=== PATIENT | male | born 1960 | race Caucasian/White ===

== ENCOUNTER 2023-05-08 15:09 | Outpatient (AMB) | payer OTHER, SELFPAY ==
--- NOTE | 2023-05-08 16:07 | A.SPINEOV_ITS ---
Intake Intake Visit Reasons: Follow up from second opinion Intake Note: Mr. Xie is here to f/u from second opinion. 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 Juan Xie to discuss surgical options for his ongoing debilitating predominantly right leg symptoms. I refer to my previous note of 10/16/[address] [facility] for detailed description of his symptomatology. I obtained flexion-extension x-rays which showed instability of L4-5 with a grade 2 spondylolisthesis and a mild spondylo listhesis at L5-S1. At that time we decided 1st to do injections before a lumbar fusion surgery. He underwent 2 injections without significant results. He also went for 2nd opinion, where he was advised to undergo an L4-S1 lumbar fusion. I initially offered him only a fusion of the L4-5 segment. Today we went over the MRI scan at [facility] and his previous standing flexion-extension x-rays in detail again. I told the patient that if he wants to remove all the out that the L5-S1 segment is also involved in his symptomatology to choose the option L4-S1 fusion. There is already a lysis of the L5 lamina and previous surgery and therefore I have to agree with the other surgeon that there is a significant risk for adjacent degenerative disease at L5-S1 with additional surgery. It is also known that the success rate of surgery go down with every spinal procedure performed. We in the end decided that an L4-S1 fusion would be more beneficial to the patient as it takes away any doubt that the L5-S1 segment might be involved as well in his symptomatology. We briefly also discussed the risk of adjacent degenerative disc disease at L3-4. The patient is only 63 years old and therefore there is a future risk for development of adjacent L3-4 degenerative disc disease. The patient finds his symptoms 2 debilitating to just continue the way he is now. I offered him a oblique lumbar interbody fusion L4-S1 which would destabilize the L4-5 and L5-S1 segments and indirectly decompress his nerve roots. We discussed the procedure, complications and expected postoperative course. He will visit the approach surgeon, Dr. Mcallister, which is needed for the L5-S1 segment. We will plan the surgery for the end of June or beginning of July. I spent over 50 minutes in this consult for preparation, discussing plan of care and answering questions. Pal Harvey MD, PhD Spine Fellowship Trained Neurosurgeon Director, [facility] Coding Level of Care Code Est Pt Level 5 (28736) Diagnoses Spondylolisthesis of lumbosacral region M43.17 Bilateral lumbar radiculopathy M54.16
== END 2023-05-08 16:39 | disposition home or self-care (01) ==
PROVIDERS: Visit Provider Neurological Surgery
DX: M43.17 Spondylolisthesis, lumbosacral region (principal); M54.16 Radiculopathy, lumbar region
CPT/HCPCS: 99215

== ENCOUNTER → 2023-05-08 15:09 | Outpatient (BNVA) | payer OTHER, SELFPAY | PROVIDERS: Visit Provider Neurological Surgery ==

== ENCOUNTER → 2023-08-19 08:55 | Outpatient (BNV) | payer OTHER, SELFPAY | PROVIDERS: Visit Provider Surgery | DX: Z48.89 Encounter for other specified surgical aftercare (principal) | CPT/HCPCS: 20930; 22558; 22585; 22612; 22614; 22840; 22853; 99024; 99499 ==

== ENCOUNTER 2023-08-19 16:27 | Inpatient (IN) | payer OTHER, SELFPAY ==
[2023-08-08 12:32] VITALS: BP 135/98; PULSE 85; RESP 18; O2SAT 94; BMI 25.5
--- NOTE | 2023-08-08 12:49 | HO.ANESPROP2 ---
Documented by User: Shivani Peguero NP 08/16/23 08:09 HPI - Anesthesia Eval Consult details Narrative: 63yo M for L4-S1 Oblique Lumbar Interbody Fusion, 08/19/23 No recent illness No CP/SOB with walking multiple miles daily. CAD s/p CABG 2016. No angina/symptoms. Follows [email or web address] cardiology. Stable at last visit 02/2023 s/p [facility] Active Problems Active Problems: All Active Problems (Updated 08/08/23 @ 12:21 by Brittany Borrego RN) Bilateral lumbar radiculopathy (Acute) Spondylolisthesis of lumbosacral region (Acute) Past Medical History Medical History Numbness JOHNSON positive [place] disease Basal cell carcinoma Actinic keratoses Tinea pedis Spondylolisthesis Hyperlipidemia Coronary artery insufficiency CAD (coronary artery disease) HTN (hypertension) Family History Family history of problems with anesthesia: No Surgical History Surgical History Hx of spinal surgery Hx of spinal surgery Hx of spinal surgery S/P CABG (coronary artery bypass graft) History of Problems with Anesthesia: No Social History Social History Are you a primary child care provider to a significant other at home: No Do you presently have visiting nurse or other home services: No Patient Tobacco Use Status: Never used Tobacco Use of substances other than those prescribed or required for medical reasons: No Have you been hit, kicked, punched, or otherwise hurt by someone within the past year? If so, by whom?: No Are you DNR?: No Advance Directives: No Advance Directives Information Provided: Yes Advance Directives on File: No Recently lost weight without trying: No Eating poorly because of decreased appetite: No Nutrition Risks: No Nutritional Risk Poor oral hygiene: No Meds Allergies Allergy/AdvReac Type Severity Reaction Status Date / Time amlodipine Allergy Unknown Verified 08/19/23 09:13 lisinopril Allergy Unknown Verified 08/19/23 09:13 Home Medications Medication Instructions Recorded Confirmed Last Taken Type aspirin 81 mg tablet,delayed 81 mg PO DAILY 08/08/23 08/08/23 08/08/23 History release atorvastatin 40 mg tablet 40 mg PO BEDTIME 08/08/23 08/08/23 Unknown History metoprolol succinate 50 mg 50 mg PO DAILY 08/08/23 08/08/23 08/19/23 History tablet,extended release 24 hr nitroglycerin 0.4 mg sublingual 0.4 mg sublingual DIRECTED PRN 08/08/23 08/08/23 Unknown History tablet Chest Pain Exam Exam Date and Time: August 08, 2023 1249 Height,Weight and Vital Signs: Height 5 ft 11 in Weight 83.007 kg Last Vital Signs Pulse 85 08/08/23 12:32 Resp 18 08/08/23 12:32 BP 135/98 H 08/08/23 12:32 Pulse Ox 94 08/08/23 12:32 O2 Del Method Room Air 08/08/23 12:32 Pertinent Lab Results Pertinent Lab Results: Lab Results 08/08/23 08/08/23 Range/Units 13:25 13:32 WBC 6.1 (4.8-10.8) X10*3/uL RBC 5.93 H (4.60-5.80) X10*6/uL Hgb 16.7 (14.0-18.0) g/dl Hct 50.9 (42.0-52.0) % MCV 85.8 (80.0-98.0) fL MCH 28.2 (27.0-33.0) pg MCHC 32.8 (31.0-36.0) g/dl RDW 13.2 (11.0-16.0) % Plt Count 198 (160-400) X10*3/uL MPV 10.6 (9.4-12.4) fL Absolute Nucleated RBC 0.000 (0.0-0.012) X10*3/uL Nucleated RBC % (auto) 0.0 (0.0-0.2) /100WBC Sodium 140 (135-145) mmol/L Potassium 3.8 (3.3-5.1) mmol/L Chloride 109 H (96-108) mmol/L Carbon Dioxide 23 (22-29) mmol/L Anion Gap 12 (12-20) BUN 12 (9-16) mg/dL Creatinine 0.74 (0.5-1.4) mg/dL Estim Creat Clear Calc 110.2 Estimated GFR > 60 Random Glucose 83 (60-115) mg/dL Calcium 9.6 (8.4-10.2) mg/dL Blood Type AB Positive Antibody Screen NEGATIVE Narrative Narrative: EKG 02/2023 NSR @ 61 Incomp RBBB Stress ECHO 2018 Negative for ischemia Airway Mallampati Class: III TM Dist: >3cm Neck ROM: Full Loose/Missing/Broken Teeth: No Heart: RRR Lungs: CTAB Assessment and Plan Assessment Anesthesia Assessment: Anesthesia Plan Discussed and PAT Visit Final Anesthetic Review Family History of Problems with Anesthesia: No History of Problems with Anesthesia: No Documented by User: Benson Claros MD 08/20/23 17:34 PMFSH Past Medical History Medical History Numbness JOHNSON positive [place] disease Basal cell carcinoma Actinic keratoses Tinea pedis Spondylolisthesis Hyperlipidemia Coronary artery insufficiency CAD (coronary artery disease) HTN (hypertension) Surgical History Surgical History Hx of spinal surgery Hx of spinal surgery Hx of spinal surgery S/P CABG (coronary artery bypass graft) Social History Social History Are you a primary child care provider to a significant other at home: No Do you presently have visiting nurse or other home services: No Patient Tobacco Use Status: Never used Tobacco Use of substances other than those prescribed or required for medical reasons: No Have you been hit, kicked, punched, or otherwise hurt by someone within the past year? If so, by whom?: No Are you DNR?: No Advance Directives: No Advance Directives Information Provided: Yes Advance Directives on File: No Recently lost weight without trying: No Eating poorly because of decreased appetite: No Nutrition Risks: No Nutritional Risk Poor oral hygiene: No Meds Allergies Allergy/AdvReac Type Severity Reaction Status Date / Time amlodipine Allergy Unknown Verified 08/19/23 09:13 lisinopril Allergy Unknown Verified 08/19/23 09:13 Home Medications Medication Instructions Recorded Confirmed Last Taken Type aspirin 81 mg tablet,delayed 81 mg PO DAILY 08/08/23 08/08/23 08/08/23 History release atorvastatin 40 mg tablet 40 mg PO BEDTIME 08/08/23 08/08/23 Unknown History metoprolol succinate 50 mg 50 mg PO DAILY 08/08/23 08/08/23 08/19/23 History tablet,extended release 24 hr nitroglycerin 0.4 mg sublingual 0.4 mg sublingual DIRECTED PRN 08/08/23 08/08/23 Unknown History tablet Chest Pain Exam Airway Loose/Missing/Broken Teeth: Yes Assessment and Plan Assessment Anesthesia Assessment: Chart Reviewed Final Anesthetic Review NPO: Yes ASA Class: III Final Preanesthetic Review: Meds/Allgs Chart Reviewed, Consent Obtained/Reviewed and Anes Risks/Benef Reviewed Patient Risk: Intermediate Procedure Risk: Intermediate Anesthetic Plan Anesthetic Plan: GA and Agree w/ Assess. and Plan Disposition: Standard PACU
[2023-08-08 13:54] LABS: Hematocrit 50.9 % (42.0-52.0); Hemoglobin 16.7 g/dl (14.0-18.0); Mean Corpuscular HGB Conc 32.8 g/dl (31.0-36.0); Mean Corpuscular Hemoglobin 28.2 pg (27.0-33.0); Mean Corpuscular Volume 85.8 fL (80.0-98.0); Mean Platelet Volume 10.6 fL (9.4-12.4); Platelet Count 198 X10*3/uL (160-400); Red Blood Count 5.93 X10*6/uL (4.60-5.80); Red Cell Distribution Width 13.2 % (11.0-16.0); White Blood Count 6.1 X10*3/uL (4.8-10.8)
[2023-08-08 14:27] LABS: Anion Gap 12 (12-20); Blood Urea Nitrogen 12 mg/dL (9-16); Calcium 9.6 mg/dL (8.4-10.2); Carbon Dioxide 23 mmol/L (22-29); Chloride 109 mmol/L (96-108); Creatinine Clr Calc Pharmacy 110.2; Estimated Glomerular Filt Rate > 60; Glucose Random 83 mg/dL (60-115); Potassium 3.8 mmol/L (3.3-5.1); Sodium 140 mmol/L (135-145)
[2023-08-19] VITALS (9 sets, daily range): BP systolic 107–144; BP diastolic 65–95; PULSE 79–86; RESP 13–20; TEMP 36–36.6; O2SAT 95–98
--- NOTE | ~2023-08-19 | XR_ITS ---
EXAMINATION: XR LUMBOSACRAL SPINE CLINICAL INFORMATION: History of L4-S1 ALIF. COMPARISON: Fluoroscopy of the same date. TECHNIQUE: An AP view of the lumbosacral spine are submitted. FINDINGS: Vertebral body heights are normal. There is a slight thoracolumbar dextroscoliosis. Orthopedic hardware is redemonstrated status-post L5-S1 fusions and discectomies, with intact posterior fixator rods, pedicular screws and disc spacers. No hardware failure or loosening is seen. XR/XR lumbar spine 1V IMPRESSION: Intact orthopedic hardware is noted status-post L5-S1 lumbar fusions.
--- NOTE | ~2023-08-19 | FL_ITS ---
EXAMINATION: XR FLUOROSCOPY WITH IMAGES CLINICAL INFORMATION: L4-S oblique lumbar interbody fusion. COMPARISON: None available. TECHNIQUE: Fluoroscopy Supervised By: Dr. Pal Harvey. Fluoroscopy Time: 1 minute 30 seconds. Cumulative Dose: 87.393 mGy. DAP: 26.121 Gycm2. Images: 2. FINDINGS: Images demonstrate posterior rods and bilateral transpedicular screws at L4 L5 and S1 and interbody fusion hardware at the L4-L5 and L5-S1 disc spaces. Surgical clips are seen anterior to the L5 vertebral body. FL/FL guidance in OR IMPRESSION: Fluoroscopy guidance for lumbar spine surgery
--- NOTE | 2023-08-19 07:12 | MHC.SHP ---
Pre-Procedural Eval Section A Date of Service: 08/19/23 The patient is an INPATIENT: No Changes since office visit: No Cold of Flu in the past 2 weeks, No New Medical Problems, No Changes in Medication and No Patient answered all questions The History & Physical has been completed within 30 days and I have reviewed it.: No Section B Chief Complaint: Spondylolisthesis, lumbosacral region Allergies: Allergies Allergy/AdvReac Type Severity Reaction Status Date / Time amlodipine Allergy Unknown Verified 08/08/23 12:05 lisinopril Allergy Unknown Verified 08/07/23 10:31 Review of Systems Sugical H&P ROS: Negative: Constitution, Cardiovascular, Respiratory, Neurological, Psychiatric, Hem-Onc, Allergic/Immunologic, Gastrointestinal, Genitourinary, Musculoskeletal, Integumentary, Endocrine and Eyes/Ears/Nose/Throat Exam Surgical H&P Exam: Not Evaluated: HEENT, Not Evaluated: Heart, Not Evaluated: Lungs, Not Evaluated: Extremities, Not Evaluated: Abdomen, Not Evaluated: Skin and Not Evaluated: Neurological Plan Diagnosis/Plan: Unchanged I have reviewed the history and physical and performed a pertinent physical examination on my patient. No changes have occurred unless specified. L4-S1 OLIF Time Spent With Patient Time: Total time managing care of this patient today __10__ minutes.
[2023-08-19] MEDS: Lactated Ringers 1,000 ML 100 ML IVCONT (09:21)
[2023-08-19] MEDS: methocarbamoL 750 MG TABLET PO (10:57)
[2023-08-19] MEDS: Gabapentin 300 MG CAPSULE PO (10:57)
--- NOTE | 2023-08-19 11:41 | PC.NURSE ---
Dr. Claros aware that patient stated that he started with a clear runny nose, minor sore throat on this past Saturday. Very occasional cough. Patient denies ever having fever, n/v, chills, diarrhea and stated that symptoms have improved over the weekend and today. Okay to proceed.
--- NOTE | 2023-08-19 14:33 | P.OP_ITS ---
Operative Note Operative Note Date of Service: 08/19/23 Narrative: Patient was evaluated by Dr. Harvey for chronic lower back pain and radiculopathy and scheduled for ALIF L4-S1. I met with the patient pre- operatively and discussed the access part of the procedure and risks an the patient agreed to proceed. He was brought to the operating room and general anaesthesia was administered without incident. Abdomen was prepped sterily and draped.Hughes was inserted. Timeout was done. 6 cm infra-umbilical incision was done and it was brought down to the anterior rectus sheath. Rectus sheath was opened vertically and left rectus muscle was mobilized. Left inferior epigastric vessels were protected. Spermatic cord was dissected and protected ant retro-peritoneal plane was developed. Left ureter was visualized and protected. Bookwalter retractor was placed with narrow blades. Dissection was carried at the medial aspect of the the left common iliac vein which was mobilized from the spine and middle sacral vessels were divided, Bipolar electrocautery was used to completely free L5-S1 disc anteriorly. Midline was marked with X-ray imaging. Iliac veins confluence to vena cave was at L3 level. Dissection continued up to L4-L5 level medial and behind left iliac vein which was retracted. There was a nerve structure, probably sympathetic plexus which was dissected and protected. Midline was marked at both levels and levels were confirmed with X-ray. Doctor Harvey then proceeded with diskectomy and cage fusion at L5-S1 and the L4-L5 lvels. Hemostasis was checked and was excellent. Gelfoam sponge was placed over the disc space with thrombin. Ureter was intact and there was a good iliac pulse. Incision was injected with diluted Lidocaine/Marcaine mixture and closed by layers using O-Maxone on the fascia and absorbable subcutaneous and subcuticular closure. Exofin glue and steri-strip were applied. EBL: less then 75ml Complication:none
--- NOTE | 2023-08-19 16:03 | P.OP_ITS ---
Operative Note Operative Note Date of Service: 08/19/23 Narrative: Preoperative Diagnosis: Lumbar degenerative disc disease L4-5 and L5-S1 with radiculopathy Procedure: L4-5 and L5-S1 discectomy, arthrodesis and implantation cage through an anterior lumbar approach (ALIF) ; posterior instrumented fusion L4-S1; allograft Indication for Surgery Lumbar degenerative disc disease Consent Informed Consent was obtained for this operation. I have explained the nature, purpose and benefits of the operation. I have discussed the risks and benefit of the operation including possible complications or adverse events with patient/family. Alternative(s) were discussed with the patient with their relative benefits and risks as well as the consequences of not accepting the operation were included in obtaining consent. Surgeon: SNEHA ORTEGA MD, PHD Procedure Assisted By: MARILYN MCALLISTER MD and millie Cooper Description of Procedure This 63-year-old male is suffering from back pain and right lumbar radiculopathy. Repeat imaging shows an L5-S1 spondylolisthesis and degenerative disc disease L4-5. The patient was offered an anterior lumbar interbody fusion L4-5 and L5-S1 followed by an L4-S1 posterior instrumented fusion. The procedure complications were explained. The patient was consented. The patient was brought to the operating room and endotracheally intubated. The patient was put in a supine position. Prep and drape was done followed by timeout. Dr. Mcallister, co- surgeon, provided the access to the L4-5 and L5-S1 disc spaces through an anterior approach. He was assisted by physician emergency veterinary assistant who performed manual retraction. He will dictate the approach in a separate operative note. When the L4-5 and L5-S1 disc spaces were exposed I took over the procedure. I started with a L5-S1 annulotomy that was followed by a partial discectomy. Sequential t rial implants were inserted and advanced towards the posterior wall of the disc space. I completed the discectomy and prepared the endplates. Then a 24 x 36 x 14 and 12 degree lordosis 4 web cage filled with allograft was inserted into the disc space. That attention was turned to the L4-5 disc space where similar steps were taken to complete the diskectomy and endplate preparation. A 24 x 36 x 14 and 12 degree lordosis 4 web cage filled with allograft was inserted into the L4-5 disc space under fluoroscopic guidance. The retractor was removed and hemostasis was done by Dr. Angelo who closed the incision. This marked first part of the procedure. Accordingly the patient was turned prone on the Raymundo spine table and 2 C arms were installed for fluoroscopy. Prep and drape was done followed by a second timeout. 2 paramedian incisions were made lateral from the L4-S1 pedicles. The muscle fascia was opened and the musculature was split bluntly to expose the posterolateral gutter. The following steps were taken for pedicle screw placement: The pediguard tap was used to create a transpedicular trajectory into the vertebral body. A K wire was advanced. A specially designed instrument was advanced over the K wire to decorticate the posterolateral gutter. Pedicle screw was advanced after which the K wire was removed. Subsequently, pedicle screws were placed in the bilateral L4, L5 and S1 pedicles. Total of 6 screws were placed with the following measurements: 6.5 x 45 mm in the bilateral L4 and L5 pedicles and 6.5 x 40 mm in the bilateral S1 pedicles. A 75 mm castillo was tunneled bilaterally and locked down with locking caps. The extension towers were removed. The posterolateral fusion was completed by laying down allograft in the posterolateral gutter. Hemostasis was done. The paramedian incisions were closed with an 0 Vicryl to fascia and 3-0 Vicryl to subdermal layer. Steri-Strips were used to approximate the incision. An OpSite with Tegaderm was used to cover the incisions. All sponge and needle counts were correct. The patient was extubated and transported in stable condition to recovery room. The physician emergency veterinary assistant was critical for the following aspects of surgery: Initial exposure, pedicle screw insertion and closure of the incisions. Anesthesia: General Estimated Blood Loss (ml): 55 mL Duration of Surgery: 3.5 hours Complications: None Postoperative Plan: Admit to inpatient for obsrevation
--- NOTE | 2023-08-19 16:51 | PHA.MEDREC ---
Pharmacy Consult ? Medication Reconciliation Pharmacy has reviewed the medication reconciliation. [email or web address]
--- OUTSIDE RECORDS SUMMARY | 2023-08-19 16:51 | XMS_ITS | Patient Health Record ---
Author Name Unknown Organization [facility], [facility] Address [address] [address] Care Team Providers Care [employer] Name Role Phone Aki You Primary Care Provider PAMELA Hooper Unavailable [phone] Flako Sheth Unavailable Unavailable REASON FOR REFERRAL No Information SOCIAL HISTORY Sex Assigned At : Social History Observation Description Sex Assigned At Unknown Encounters Encounter Location Date Provider Diagnosis [facility] [address] [address] 03/22/2023 BRETA BOOTS Lumbosacral radiculopathy M54.17 and Numbness R20.0 [facility] [address] [address] 03/29/2023 BRETA BOOTS ASSESSMENTS Encounter Date Diagnosis Assessment Notes Treatment Notes Treatment Clinical Notes 03/22/2023 Numbness (ICD-10 - R20.0) 03/22/2023 Lumbosacral radiculopathy (ICD-10 - M54.17) Please see scanned EMG note. PLAN OF TREATMENT No Information Insurance Providers Payer Name Payer Address Payer Phone Subscriber Number Group Number Insured Name Patient Relationship to Insured Coverage Start Date Coverage End Date [facility] [address] [place] [phone] [id number] Juan Gutierrez Self - patient is the insured
[2023-08-19] MEDS: HYDROmorphone HCl 0.5 MG/0.5 ML SYRINGE 0.25 MG IVPUSH ×2 (17:15→17:24)
[2023-08-19] MEDS: oxyCODONE HCl Immed Release 5 MG TABLET PO (17:30)
--- NOTE | 2023-08-19 18:05 | PC.NURSE ---
1800 TRANSFER TO [place] [address] VIA BED. REPORT GIVEN RAUL S3
[2023-08-19] MEDS: Acetaminophen 1,000 MG/100 ML PIGGYBACK 400 MG IV ×2 (18:47→21:22)
[2023-08-19] MEDS: 0.9 % Sodium Chloride 1,000 ML 75 ML IVCONT (18:48)
[2023-08-19] MEDS: Ketorolac Tromethamine 15 MG/ML VIAL IVPUSH ×2 (18:49→21:41)
[2023-08-19] MEDS: Docusate Sodium 100 MG CAPSULE PO (20:23)
[2023-08-19] MEDS: ceFAZolin Sodium/Dextrose,Iso 2 GM/50 ML PIGGYBACK IV (20:23)
[2023-08-19] MEDS: Atorvastatin Calcium 40 MG TABLET PO (20:23)
[2023-08-19] MEDS: HYDROmorphone HCl 1 MG/ML SYRINGE IVPUSH (23:51)
[2023-08-20] MEDS: ceFAZolin Sodium/Dextrose,Iso 2 GM/50 ML PIGGYBACK IV ×2 (03:17→08:38)
[2023-08-20 04:12] VITALS: BP 118/80; PULSE 80; RESP 18; TEMP 36.4; O2SAT 96
[2023-08-20] MEDS: Acetaminophen 1,000 MG/100 ML PIGGYBACK 400 MG IV ×2 (04:12→09:35)
[2023-08-20] MEDS: Ketorolac Tromethamine 15 MG/ML VIAL IVPUSH ×2 (04:15→10:34)
[2023-08-20 06:00] VITALS: BP 106/62; PULSE 74; RESP 18; TEMP 36; O2SAT 98
--- NOTE | 2023-08-20 07:55 | PM.DS ---
DS: Providers Provider Date of Service: 08/20/23 Date of admission: 08/19/23 16:27 Primary care physician: Aki You DS: Summary Time Spent with Patient Time attestation: Total time managing care of this patient today ____ minutes. Discharge coordination time: Less than 30 minutes Quality: Safe Use of Opioids Does Pt have an Active Cancer Diagnosis on the Problem List?: No Quality: Stroke Does the patient have a stroke diagnosis?: No Physical Exam Vital Signs: Vital Signs: Last Vital Signs Temp 96.8 F 08/20/23 06:00 Pulse 74 08/20/23 06:00 Resp 18 08/20/23 06:00 BP 106/62 08/20/23 06:00 Pulse Ox 98 08/20/23 06:00 O2 Del Method Nasal Cannula 08/20/23 06:00 O2 Flow Rate 2 08/20/23 06:00 BMI result Body Mass Index 25.5 Discharge Plan Discharge Anticipated Discharge Date/Time: 08/20/23 08:00 Patient Disposition: Home, Self-Care Discharge Diagnosis: S/p L4-5, L5-S1 ALIF Referrals: Aki You [Other] - 1 Week Discharge Medications: New oxycodone 5 mg tablet 5 mg PO Q6H PRN (Reason: severe pain (scale score 7-10)) Qty: 20 0RF Rx Instructions: Partial Fill upon patient request. docusate sodium 100 mg capsule 100 mg PO BID Qty: 10 0RF Continued atorvastatin 40 mg tablet 40 mg PO BEDTIME metoprolol succinate 50 mg tablet extended release 24 hr 50 mg PO DAILY aspirin 81 mg Tablet,Delayed Release (Dr/Ec) 81 mg PO DAILY nitroglycerin 0.4 mg tablet, sublingual 0.4 mg sublingual DIRECTED PRN (Reason: Chest Pain) Discharge Orders: Discharge Order (Routine); Ordered 08/20/23 Ordered By: Manny Mathew Diet: Advance to usual diet Activity on Discharge: As tolerated Stand Alone Forms: Patient Portal Discharge page Activity Restrictions/Additional Instructions: After your spinal surgery we ask you to observe the following restrictions/guidelines: Activity: With lumbar fusion surgery it is normal to have days in the first couple of weeks where you have increased leg pain. This usually lasts 1-2 days and self resolves with the continuation of medication. Attempt to stay mobile and continue activity as tolerated. It is normal to feel some discomfort as you increase your activity, but that will improve with time. We ask you avoid heavy lifting or activities that cause pain. As a general rule, 8lbs is a safe limit for lifting right after surgery. Walk as much as you feel comfortable but not to exhaustion. You will feel extra tired the first few days after surgery. Stay well hydrated. It is OK to walk up and down stairs You may return to driving when you are off narcotics (such as vicodin, oxycodone, dilaudid, etc), and you are back to normal functional capacity. If you have any concerns please check with office before driving. Return to work is specific to each patient and each surgery, so please speak with your doctor/PA at first follow up. Please bring paperwork such as FMLA at that time if you need it filled out. Medications: It is recommended that you take Tylenol 500 mg every 4 hours for the 1st week postoperatively, alongside ibuprofen 600 mg every 8 hours. We will also be prescribing gabapentin 300 mg to be taken every 8 hours for the 1st month postoperatively. We will give you a short supply of narcotics after surgery (usually one weeks worth). Please use this for breakthrough pain that is refractory to the Tylenol ibuprofen and gabapentin. If you need more please call the office but do not use more than prescribed. You will need to give our office 48 hours notice if you need narcotics refilled and we do not fill narcotics on weekends or evenings. If you are on a narcotic, it is a good idea to take a stool softener such as colace or senna to avoid constipation If you take blood thinner such as aspirin, Plavix, Coumadin, Effient, Eliquis etc for conditions such as Afib, DVT, Pulmonary embolus, coronary disease, stents etc please speak with your surgeon about specific details as to when you can resume these medications. You can resume NSAIDs on post op day 1 (eg: Motrin, Naproxen, etc). Follow up: Please call the office, , after surgery to arrange a 3 week follow up for wound check. Wound Care: You may remove your dressing on the first day after surgery. You may leave open to air. Please do not remove the steri strips underneath. they will fall off on their own in one week. IT IS NORMAL FOR THE WOUND TO OOZE OR BE BLOODY FOR A FEW DAYS AFTER SURGERY. IF THIS HAPPENS JUST PLACE NEW DRESSING OVER IT TO AVOID STAINING CLOTHES. You may shower on post op day # 1 We ask that you do not let the water soak the wound. If it does get wet, just towel dry lightly. Please do not scrub your incision or place any type of chemical/ointment on the wound. No tub baths, pools or jacuzzis for one month. If you have any leaking or redness from your wound, or fevers, please call office Care Plan Goals: Return to activity as tolerated. Health Concerns: None. Plan of Treatment: Follow-up in clinic in 2 weeks. Assessment: Juan is doing well, reports no radicular pain down his right leg. States that he feels much better than he did pre-operatively. Currently has good pain control. Is awaiting PT evaluation and can be discharged home therapy able to clear him. He has not yet been able to be up out of bed, we put in orders have his Hughes discontinued. As soon as he is cleared from PT standpoint his Hughes is removed he is cleared at home. Pain medications and stool softener sent to his pharmacy. Strength is full in his bilateral lower extremities. No neurological deficits. Posterior / anterior incision sites closed with minimal drainage.
--- NOTE | 2023-08-20 07:55 | HO.NEURO.PN ---
Neurosurgery Operative Note Date of Service: 08/20/23 Narrative: POD: 1 Procedure: L4-5, L5-S1 ALIF Patient reports he has not yet been up out of bed but is awaiting PT evaluation to ambulate today. He feels his symptoms are much better than pre-operatively. He reports no radicular pain down his right leg. He is voiding with the assistance of a Hughes catheter, and is tolerating diet. Afebrile, vital signs stable. Strength full and symmetric in UE / LE. Back dressings have some staining without signs of hematoma. No active sanguineous drainage. Area is dry. Plan: The patients is back dressing was changed in the area was cleaned. Patient meets criteria to be medically discharged home, assuming that he has no issues with ambulation when he sees PT. He was seen at bedside with Dr. Harvey. Manny Mathew PA-C [facility] [address] [facility] [id number]
--- NOTE | 2023-08-20 08:17 | PC.NURSE ---
f/c removed at this time
--- NOTE | 2023-08-20 08:28 | MHC.CM.PN ---
pt dcd home no skilled services ordered by
[2023-08-20] MEDS: Metoprolol Succinate ER 50 MG TAB.ER.24H PO (08:38)
[2023-08-20] MEDS: Docusate Sodium 100 MG CAPSULE PO (08:38)
--- NOTE | 2023-08-20 14:43 | HO.POSTANES ---
Post Anesthesia Evaluation Post Anesthesia Evaluation Date of Service: 08/20/23 Vital Signs: Vital Signs Temp Pulse Resp BP Pulse Ox O2 Del Method O2 Flow Rate 08/20/23 06:00 96.8 F 74 18 106/62 98 Nasal Cannula 2 08/20/23 04:12 97.6 F 80 18 118/80 96 Room Air Anesthesia: General Endotracheal-GETA Mental Status: Awake Pain Control: Satisfactory Nausea/Vomiting: None Hydration: Adequate Anesthesia-Related Issues: No Anes. Related Issues
== END 2023-08-20 13:30 | disposition home or self-care (01) | DRG 460 ==
LOC: HO.S3 16:49
PROVIDERS: Neurological Surgery; Nurse Practitioner; Admitting Provider Physician Assistant; PCP Family Medicine; Visit Provider Physician Assistant
PROC: 0SG10A0 Fusion of 2 or more Lumbar Vertebral Joints with Interbody Fusion Device, Anterior Approach, Anterior Column, Open Approach (ICD-10-PCS; principal; 2023-08-19 10:40)
DX: M43.17 Spondylolisthesis, lumbosacral region (principal); I25.10 Atherosclerotic heart disease of native coronary artery without angina pectoris; E78.5 Hyperlipidemia, unspecified; I10 Essential (primary) hypertension; Z95.1 Presence of aortocoronary bypass graft; Z79.82 Long term (current) use of aspirin; Z79.899 Other long term (current) drug therapy
CPT/HCPCS: 36415; 72020; 80048; 85027; 86850; 86900; 86901; 97161; C1713; C1758; J0131; J0690; J1100; J1170; J1885; J2250; J2371; J2405; J3010; L8699

== ENCOUNTER → 2023-09-11 14:24 | Outpatient (BNVA) | payer OTHER, SELFPAY | PROVIDERS: PCP Family Medicine; Visit Provider Physician Assistant ==

== ENCOUNTER 2023-09-11 14:25 | Outpatient (AMB) | payer OTHER, SELFPAY ==
--- NOTE | 2023-09-11 14:30 | A.SPINEOV_ITS ---
Intake Intake Visit Reasons: 1st post op Intake Note: Mr. Xie is here today for his 1st post-op visit. 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 Juan comes in today for his 1st postoperative visit. He reports he is very satisfied with the surgery and feels much better than he did pre-operatively. The patient reports he is up walking around and completing the majority of his ADLs. He reports that his back pain is significantly improved and he is able to walk farther than he could before surgery. He is walking on average 2-3 miles per day. He still reports mild pain in his low back, reports it is manageable with rest. He inquired extensively about restrictions going forward as he continues to heal. We discussed these at great length. We also reviewed his intraoperative and postoperative x-rays. No neurological deficits. Patient is able to ambulate well, rises from a seated position without difficulty. Incision sites are closed, well healing, with no signs of drainage. We will follow-up with the patient in 6 weeks for his 2nd postoperative visit. At that time we will get x-rays to review with the patient. Manny Harvey MD,PhD [facility] Coding Level of Care Code Global (31758) Diagnoses S/P spinal fusion Z98.1
== END 2023-09-11 15:42 | disposition home or self-care (01) ==
PROVIDERS: PCP Family Medicine; Visit Provider Physician Assistant
DX: Z98.1 Arthrodesis status (principal)
CPT/HCPCS: 99024

== ENCOUNTER 2023-10-24 13:32 | Outpatient (REF) | payer OTHER, SELFPAY | END 2023-10-24 13:33 | disposition home or self-care (01) | LOC: HO.HOSX 13:32 | PROVIDERS: Visit Provider Physician Assistant | DX: Z13.89 Encounter for screening for other disorder (principal) ==

== ENCOUNTER 2023-10-25 13:28 | Outpatient (AMB) | payer OTHER, SELFPAY ==
--- NOTE | 2023-10-25 14:16 | HO.SPINEOV ---
Intake Intake Visit Reasons: 2nd post op with X rays Allergies amlodipine Allergy (Verified 08/19/23 09:13) Unknown lisinopril Allergy (Verified 08/19/23 09:13) Unknown Assessment & Plan Assessment & Plan (1) S/P spinal fusion: Code(s): Z98.1 - Arthrodesis status Plan Procedure: L4-5, L5-S1 JUN Martinez comes in today for his 1st postoperative visit. He reports that he continues to do well and continues to walk 2-3 miles per day. He does report some low back pain when attempting to sit up from a laying down position. He states that is manageable in fleeting but was enquiring about this. We extensively discussed return to activity restrictions including light weight-bearing and cardiovascular exercise. No neurological deficits. Patient is able to ambulate well, rises from a seated position without difficulty. Incision sites are closed, well healing, with no signs of drainage. Juan would like to follow-up again in 6 months to evaluate for any bone growth run the fusion site. He would also like to discuss his progress with his continued low back pain when sitting up from lying down. Manny Harvey MD,PhD [facility] Orders: Orders XR lumbar spine 4V min Today Z98.1 - Arthrodesis status Coding Level of Care Code Global (31913) Diagnoses S/P spinal fusion Z98.1
== END 2023-10-25 14:18 | disposition home or self-care (01) ==
PROVIDERS: PCP Family Medicine; Visit Provider Physician Assistant
DX: Z98.1 Arthrodesis status (principal)
CPT/HCPCS: 99024

== ENCOUNTER → 2023-10-25 13:28 | Outpatient (BNVA) | payer OTHER, SELFPAY | PROVIDERS: PCP Family Medicine; Visit Provider Physician Assistant | DX: Z98.1 Arthrodesis status (principal) ==

== ENCOUNTER 2023-10-25 13:32 | Outpatient (REF) | payer OTHER, SELFPAY | END 2023-10-25 13:33 | disposition home or self-care (01) | LOC: HO.HOSX 13:32 | PROVIDERS: Visit Provider Physician Assistant | DX: Z98.1 Arthrodesis status (principal) | CPT/HCPCS: 72110 ==

== ENCOUNTER 2024-04-24 10:08 | Outpatient (REF) | payer OTHER, SELFPAY ==
--- NOTE | ~2024-04-24 | XR_ITS ---
EXAMINATION: XR LUMBOSACRAL SPINE WITH OBLIQUES CLINICAL INFORMATION: Arthrodesis status. COMPARISON: 10/25/2023, 08/19/2023 TECHNIQUE: 4 views of the lumbar spine inclusive of flexion and extension views. FINDINGS: Redemonstration of orthopedic hardware of posterior fusions with bilateral pedicular screws and rods spanning L4-L5, and L5-S1. Disc spacers at L4-L5, and L5-S1 redemonstrated. Hardware appears intact. Grade 1 anterolisthesis of L5-S1 is difficult to evaluate due to overlying bone and soft tissue structures. Diffuse demineralization. Atherosclerotic aortoiliac calcifications Moderate spondylosis in the remainder of the lumbar spine spanning L1 to L4 levels with loss of disc space height most notable at L3-L4. XR/XR lumbar spine 4V min IMPRESSION: 1. Redemonstration of orthopedic hardware of posterior fusions spanning L4-L5, and L5-S1. Hardware appears intact. 2. Grade 1 anterolisthesis of L5-S1 is difficult to evaluate due to overlying bone and soft tissue structures.
== END 2024-04-24 10:09 | disposition home or self-care (01) ==
LOC: HO.HOSX 10:08
PROVIDERS: Visit Provider Physician Assistant
DX: Z98.1 Arthrodesis status (principal)
CPT/HCPCS: 72110

== ENCOUNTER 2024-04-24 13:18 | Outpatient (AMB) | payer OTHER, SELFPAY ==
--- NOTE | 2024-04-24 13:34 | HO.SPINEOV ---
Intake Visit Reasons: 6 months f/up with xrays Intake Note: Mr. Gutierrez is here for a 6 month f/u with xrays. 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 He is overall doing excellent and turned to most of the activities he enjoys. When he is driving in a car he will feel some pain down the back of the buttock. But it is very manageable and oddly enough if he wears sandals he will not have the pain. His x-rays look great, there has been no position change of the hardware. He was curious about whether or not there would be signs of fusion yet, and at this point there would be no way to tell. It does not mean that there is not a fusion taking place, but is just unlikely we are going to see a yet. Since he is doing so well, I do not feel the need to escalate to a CT scan to check on the fusion. I told him he can pursue any activities he likes and he has no restrictions. He can follow up with us on an as-needed basis. Total amount of time spent in this visit was 20 minutes in discussion of symptoms, lumbar x-ray imaging results and subsequent plan of care Brendan Harvey MD,PhD [facility] Orders: Orders XR lumbar spine 4V min Today Z98.1 - Arthrodesis status Coding Level of Care Code Est Pt Level 3 (31429) Diagnoses S/P spinal fusion Z98.1
== END 2024-04-24 14:15 | disposition home or self-care (01) ==
PROVIDERS: PCP Family Medicine; Visit Provider Physician Assistant
DX: Z98.1 Arthrodesis status (principal)
CPT/HCPCS: 99213